=== PATIENT | female | born 1930 | race Caucasian/White ===

== ENCOUNTER 2016-10-28 11:42 | Emergency (ER) | payer MEDICARE ==
[2016-10-28] MEDS ORDERED: HYDROcodone/APAP 5-325MG 1 EACH TAB PO STA (13:46)
--- NOTE | 2016-10-28 14:22 | XR ---
EXAMINATION TYPE: XR shoulder complete LT DATE OF EXAM: 10/28/2016 2:17 PM COMPARISON: NONE HISTORY: Pain TECHNIQUE: Shoulder examined in 3 FINDINGS: The humeral head articulates with the glenoid. The acromio-clavicular junction is normal. No acute fractures or dislocations are evident. A follow up study can be performed 7-10 days from acute trauma for continued pain. IMPRESSION: 1. Normal Shoulder
--- NOTE | 2016-10-28 14:39 | ED ---
General Adult HPI - General Chief complaint: Extremity Injury, Upper Stated complaint: neck/left arm pain Source: patient Mode of arrival: ambulatory Limitations: no limitations - History of Present Illness Initial comments: 86-year-old female presented for evaluation of left shoulder pain. She states for the last 2 days she has been doing a lot of yard work and this is resulted in a dull ache in her left shoulder that is worse with movement. She denies any associated chest pain or shortness of breath and states that the pain is not worsened with exertion. She states there is point tenderness over the lateral aspect of the shoulder and in the supraspinous fossa. She denies any lightheadedness or dizziness with her symptoms. She has taken no medications to treat her pain. - Related Data Home Medications Medication Instructions Recorded Confirmed Apixaban [Eliquis] 2.5 mg PO BID 02/12/15 10/28/16 Digoxin [Digitek] 125 mcg PO Q48H 02/12/15 10/28/16 Diltiazem HCl [Diltiazem 12Hr ER] 120 mg PO Q12HR 02/12/15 10/28/16 Vit C/E/Zn/Coppr/Lutein/Zeaxan 1 cap PO DAILY 02/12/15 10/28/16 [Preservision Areds 2 Softgel] Levothyroxine Sodium [Synthroid] 75 mcg PO DAILY 10/28/16 10/28/16 Previous Rx's Medication Instructions Recorded Acetaminophen-Codeine 300-30mg 1 tab PO Q6H PRN #7 tablet 10/28/16 [Tylenol #3] Ibuprofen [Motrin] 600 mg PO Q8HR PRN #20 tab 10/28/16 Allergies Allergy/AdvReac Type Severity Reaction Status Date / Time fentanyl Allergy Unknown Verified 10/28/16 13:59 wheat Allergy Unknown Verified 10/28/16 13:59 Milk Containing Products AdvReac Unknown Verified 10/28/16 13:59 [Dairy] Review of Systems ROS Statement: Those systems with pertinent positive or pertinent negative responses have been documented in the HPI. ROS Other: All systems not noted in ROS Statement are negative. Constitutional: Denies: fever, chills, weakness Eyes: Denies: eye pain, eye discharge ENT: Denies: ear pain, throat pain Respiratory: Denies: cough, dyspnea Cardiovascular: Denies: chest pain, palpitations, dyspnea on exertion Gastrointestinal: Denies: abdominal pain, nausea, vomiting Genitourinary: Denies: urgency, dysuria Musculoskeletal: Reports: other (Left shoulder pain with movement of the shoulder). 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 Absent: scleral icterus, conjunctival injection, periorbital swelling ENT exam: Present: normal exam, mucous membranes moist Neck exam: Present: normal inspection. Absent: tenderness, meningismus, lymphadenopathy Respiratory exam: Present: normal lung sounds bilaterally. Absent: respiratory distress, wheezes, rales, rhonchi, stridor Cardiovascular Exam: Present: regular rate, normal rhythm, normal heart sounds. Absent: systolic murmur, diastolic murmur, rubs, gallop, clicks GI/Abdominal exam: Present: soft, normal bowel sounds. Absent: distended, tenderness, guarding, rebound, rigid Rectal exam: Present: deferred Extremities exam: Present: normal capillary refill, other (Left shoulder pain at the greater tuberosity of the humerus as well as soft tissue tenderness to palpation at the supraspinatus muscle ). Absent: tenderness, pedal edema, joint swelling, calf tenderness Back exam: Present: normal inspection Neurological exam: Present: alert, oriented X3, CN II-XII intact Psychiatric exam: Present: normal affect, normal mood Skin exam: Present: warm, dry, intact, normal color. Absent: rash Course Vital Signs 10/28/16 10/28/16 12:28 14:53 Temperature 97.9 F 98.0 F Pulse Rate 97 94 Respiratory 18 16 Rate Blood Pressure 124/73 172/90 O2 Sat by Pulse 97 98 Oximetry Medical Decision Making - Medical Decision Making 86-year-old female presenting for evaluation musculoskeletal pain to the left shoulder following 2 days of working outside in her yard. On physical examination she has pain with movement of the left arm but has full range of motion. She has tenderness to palpation at the lateral aspect of the superior humerus as well as along the supraspinatus muscle. X-ray shows no acute abnormality. Patient was informed of this and on reevaluation had improvement in pain following [facility]. She was informed that she would be discharged with instructions to follow-up with her primary care physician but to return to this facility if her symptoms should worsen or persist including but not limited to: Chest pain, shortness of breath, exertional dyspnea or chest pain, altered mental status, syncope, intractable nausea and vomiting. The patient acknowledged an understanding of this information and agreed with this plan of care. Disposition Clinical Impression: Musculoskeletal pain of left upper extremity Disposition: HOME SELF-CARE Condition: Stable Instructions: Shoulder Pain (ED), Shoulder Bursitis (ED), Rotator Cuff Injury ( ED) Additional Instructions: Please use medication as discussed. Please follow up with family doctor if symptoms have not improved over the next two days. Please return to the emergency room if your symptoms increase or worsen or for any other concerns. Prescriptions: Acetaminophen-Codeine 300-30mg [Tylenol #3] 1 tab PO Q6H PRN #7 tablet PRN Reason: Pain Ibuprofen [Motrin] 600 mg PO Q8HR PRN #20 tab PRN Reason: Analgesia Referrals: Som Feliz MD [Primary Care Provider] - 1-2 days Time of Disposition: 14:37
[2016-10-28 14:53] VITALS: BP 172/90; PULSE 94; RESP 16; TEMP 98
== END 2016-10-28 14:53 | disposition home or self-care (01) ==
LOC: EC 11:42
DX: M25.512 Pain in left shoulder (principal); M79.1 Myalgia; I10 Essential (primary) hypertension; I48.91 Unspecified atrial fibrillation; E07.9 Disorder of thyroid, unspecified; Z79.01 Long term (current) use of anticoagulants; Z79.899 Other long term (current) drug therapy; Z91.018 Allergy to other foods; Z91.011 Allergy to milk products; Z88.8 Allergy status to other drugs, medicaments and biological substances
CPT/HCPCS: 99283

== ENCOUNTER 2018-06-16 11:20 | Emergency (ER) | payer MEDICARE ==
--- NOTE | 2018-06-16 12:22 | ED ---
General Adult HPI - General Chief complaint: Wound/Laceration Stated complaint: Fall Time Seen by Provider: 06/16/18 12:02 Source: patient, RN notes reviewed Mode of arrival: ambulatory Limitations: no limitations - History of Present Illness Initial comments: Patient is an 88-year-old female who presents the emergency department with complaints of right arm laceration after she fell around 11 am today. She reports that she was going up the stairs of her porch when she tripped and fell hitting her right arm against the concrete. She is unsure when her last tetanus vaccination was done. She denies head trauma or loss of consciousness or any other injuries. Patient denies any recent fever, chills, shortness of breath, chest pain, back pain, abdominal pain, nausea or vomiting, numbness or tingling, neck pain, headaches or visual changes, or any other complaints. - Related Data Home Medications Medication Instructions Recorded Confirmed Apixaban [Eliquis] 2.5 mg PO BID 02/12/15 06/16/18 Cholecalciferol [Vitamin D3] 2,000 unit PO DAILY 06/02/17 06/16/18 Vit C/E/Zn/Coppr/Lutein/Zeaxan 1 cap PO DAILY 07/02/17 06/16/18 [Preservision Areds 2 Softgel] Levothyroxine Sodium [Synthroid] 88 mcg PO DAILY 06/16/18 06/16/18 Metoprolol Tartrate [Lopressor] 37.5 mg PO BID 06/16/18 06/16/18 Allergies Allergy/AdvReac Type Severity Reaction Status Date / Time fentanyl Allergy Unknown Verified 06/16/18 11:49 gluten Allergy Nausea & Verified 06/16/18 11:49 Vomiting & Diarrhea wheat Allergy Unknown Verified 06/16/18 11:49 Milk Containing Products AdvReac Unknown Verified 06/16/18 11:49 [Dairy] Review of Systems ROS Statement: Those systems with pertinent positive or pertinent negative responses have been documented in the HPI. ROS Other: All systems not noted in ROS Statement are negative. Past Medical History Past Medical History: Atrial Fibrillation, Cancer, GERD/Reflux, Hypertension, Osteoarthritis (OA), Skin Disorder, Thyroid Disorder Additional Past Medical History / Comment(s): hiatal hernia, celiac disease, hx skin cancer on face, "borderline cholesterol" History of Any Multi-Drug Resistant Organisms: None Reported Past Surgical History: Hysterectomy, Tonsillectomy Additional Past Surgical History / Comment(s): skin cancer removed from face, madhu cataracts, Past Anesthesia/Blood Transfusion Reactions: No Reported Reaction Past Psychological History: Anxiety Smoking Status: Never smoker Past Alcohol Use History: None Reported Past Drug Use History: None Reported - Past Family History Mother Family Medical History: No Reported History General Exam Limitations: no limitations General appearance: alert, in no apparent distress Head exam: Present: atraumatic, normocephalic Eye exam: Present: normal appearance Respiratory exam: Present: normal lung sounds bilaterally Cardiovascular Exam: Present: regular rate, normal rhythm Extremities exam: Present: full ROM, other (Radial pulses palpable and strong bilaterally.) Neurological exam: Present: alert, oriented X3 Psychiatric exam: Present: normal affect, normal mood Skin exam: Present: warm, dry, other (5 cm laceration to right forearm just distal to elbow.) Course Vital Signs 06/16/18 06/16/18 06/16/18 11:21 12:32 14:26 Temperature 97.8 F 97.4 F L Pulse Rate 76 71 82 Respiratory 18 16 16 Rate Blood Pressure 187/93 162/85 169/83 O2 Sat by Pulse 98 97 97 Oximetry Procedures - Laceration Laceration #1 Consent Obtained: verbal consent (Neurovascularly intact following procedure.) Time Out Performed: Yes Indication: laceration Site: upper extremity Size (cm): 5 Description: irregular Depth: simple, single layer Sedation/Analgesia: none Anesthetic Used: lidocaine 1%, with epi Anesthesia Technique: local infiltration Amount (mls): 8 Pre-repair: wound explored, irrigated extensively Type of Sutures: nylon Size of Sutures: 4-0 Number of Sutures: 6 Technique: simple, interrupted Patient Tolerated Procedure: well, no complications Medical Decision Making - Medical Decision Making Tetanus updated here. 6 sutures placed with 2 Steri-Strips also. Case discussed in detail with attending physician Dr. Keita. Disposition Clinical Impression: Laceration Disposition: HOME SELF-CARE Condition: Good Instructions: Care For Your Stitches (ED) Additional Instructions: Follow-up with PCP in 2 days. Return for suture removal in 7-10 days, or you may follow-up with your PCP for suture removal. Return to emergency department if any redness, swelling, drainage or fevers as this could indicate an infection. Return to the emergency department for any other concerns. Is patient prescribed a controlled substance at d/c from ED?: No Referrals: Som Feliz MD [Primary Care Provider] - 1-2 days Time of Disposition: 14:30
[2018-06-16 12:34] VITALS: RESP 16
[2018-06-16] MEDS ORDERED: LIDOCAINE 1%-EPI 1:100,000 30 ML VIAL SQ STA (12:46)
[2018-06-16] MEDS ORDERED: TETANUS-DIPHTHERIA TOX (PF) 0.5 ML VIAL IM ONE (12:47)
[2018-06-16 14:27] VITALS: BP 169/83; PULSE 82; TEMP 97.4
== END 2018-06-16 14:35 | disposition home or self-care (01) ==
LOC: EC 11:20
DX: S41.111A Laceration without foreign body of right upper arm, initial encounter (principal); I48.91 Unspecified atrial fibrillation; I10 Essential (primary) hypertension; E07.9 Disorder of thyroid, unspecified; Z23 Encounter for immunization; Z85.828 Personal history of other malignant neoplasm of skin; Z79.01 Long term (current) use of anticoagulants; Z79.899 Other long term (current) drug therapy; Z91.011 Allergy to milk products; Z91.018 Allergy to other foods; Z88.5 Allergy status to narcotic agent; W10.9XXA Fall (on) (from) unspecified stairs and steps, initial encounter
CPT/HCPCS: 12002; 90471; 90714; 99282